=== PATIENT | female | born 1980 | race Caucasian/White ===

== ENCOUNTER 2016-07-11 08:00 | Inpatient (IN) | payer BC ==
[2016-07-11] MEDS ORDERED: TUBERCULIN PPD 5 TU/0.1ML SYRINGE (IN PATIENT USE ONLY) ID ONE (08:45)
[2016-07-11] MEDS ORDERED: DINOPROSTONE 10 MG VAGINAL SUPPOSITORY VG ONE ×2 (08:45→23:30)
[2016-07-11 09:30] VITALS: BMI 37.4
[2016-07-11] MEDS ORDERED: BUTORPHANOL TARTRATE 1 MG/ML VIAL IVPB ONE (09:33)
--- NOTE | 2016-07-11 09:35 | HP ---
Past Medical History - Admission History of Present Illness: 35 y/o with SIUP at 41 weeks here for labor induction for late term. complicated only by polyhydramnios in 2nd trimester which resolved. GBS negative, HIV negative. No other complaints/issues. 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 Pulmonary: No: Asthma, COPD Gastrointestinal: Yes: Irritable Bowel Disease ...: 1 ...Para: 0 ...LMP: 09/28/15 ...EDC by Sono: 07/04/16 Heme/Onc: No: Anemia, Bleeding Disorder Infectious Disease: No: MRSA, STD's Psych: Yes: Anxiety, Depression (no meds, mood stable throughout ) Rheumatology: Yes: Fibromyalgia (no meds) - Past Surgical History Past Surgical History: Yes: None Hx Myomectomy: No Hx Transabdominal Cerclage: No - Smoking History Smoking history: Never smoked Have you smoked in the past 12 months: No - Alcohol/Substance Use Hx Alcohol Use: No History of Substance Use: reports: None - Social History Usual Living Arrangement: Yes: With Spouse History of Recent Travel: No Home Medications - Allergies Allergies/Adverse Reactions: Allergies Allergy/AdvReac Type Severity Reaction Status Date / Time midodrine Allergy Severe Hives Verified 07/11/16 08:29 - Home Medications Home Medications: Ambulatory Orders NK [No Known Home Medication] 07/11/16 Physical Exam - Maternity Vital Signs: Vital Signs Temperature 98.2 F 07/11/16 09:20 Pulse Rate 98 H 07/11/16 09:20 Respiratory Rate 20 07/11/16 09:20 Blood Pressure 124/82 07/11/16 09:20 O2 Sat by Pulse Oximetry (%) Constitutional: Yes: Well Nourished, No Distress, Calm Eyes: Yes: Conjunctiva Clear, EOM Intact HENT: Yes: Atraumatic, Normocephalic Neck: Yes: Supple, Trachea Midline Cardiovascular: Yes: Regular Rate and Rhythm Lungs: Clear to auscultation - Abdominal Exam/OB Fundal Height: 41 Number of Fetuses: Single Presentation: Vertex Contractions: No Intensity: Unaware Monitor Mode: External Heart Rate (range): 155 Category: I Accelerations: None - Vaginal Exam/OB Vaginal Bleediing: No Speculum Exam: No Dilatation (cm): 0 Effacement (%): 0 Amniotic Membrane Status: Intact Presentation: Vertex/Position Station: -3 - Physical Exam Extremities: Yes: WNL Edema: Yes Edema: LLE: 1+, RLE: 1+ Integumentary: Yes: WNL Psychiatric: Yes: Alert, Oriented Hemorrhage Risk Assessment - Risk Factors Medium Risk Factors: Yes: None High Risk Factors: Yes: None Risk Score: 1 Risk Level: Medium Risk Problem List - Problems (1) Post-dates Code(s): O48.0 - POST-TERM (2) Anxiety Code(s): F41.9 - ANXIETY DISORDER, UNSPECIFIED Assessment/Plan 35 y/o with SIUP at 41 weeks, induction of labor for late term - AFVSS - FHTS cat 1 - late term , for IOL - cervidil placed. For re evaluation at 12 hours ,may need 2nd cervidil vs. pitocin - GBS negative - h/o anxiety - no meds, mood stable, will monitor
[2016-07-11 09:58] LABS: BASOPHIL 0.4 % (0-2.0); EOSINOPHIL 0.9 % (0-4.5); MCH 26.7 pg (25.7-33.7); MCHC 32.5 g/dl (32.0-36.0); MEAN CELL VOLUME 82.2 fl (80-96); MEAN PLT VOLUME 9.4 fl (7.5-11.1); NEUTROPHILS 75.3 % (42.8-82.8); PLATELET COUNT 177 K/MM3 (134-434); RDW 14.9 % (11.6-15.6); WHITE BLOOD COUNT 8.8 K/mm3 (4.0-10.0)
[2016-07-11 10:12] LABS: INR 0.94 (0.82-1.09); PROTHROMBIN TIME (PATIENT) 10.3 SEC (9.98-11.88)
[2016-07-11 10:21] LABS: CALCIUM 8.8 mg/dL (8.5-10.1); COCKROFT - GAULT 140.4795; CREATININE 0.8 mg/dL (0.55-1.02)
[2016-07-11 11:31] LABS: HIV 1 & 2 AB NEGATIVE; HIV 1 AGp24 NEGATIVE
[2016-07-11] MEDS: DEXTROSE 5%-LACTATED RINGERS 1,000 ML IV SCH (22:30)
[2016-07-12] MEDS: DEXTROSE 5%-LACTATED RINGERS 1,000 ML IV SCH ×3 (04:45→20:30)
--- NOTE | 2016-07-12 08:22 | PN ---
Ante-Partal Exam - Subjective Subjective: pt feeling some contractions overnight but overall comfortable Vital Signs: Vital Signs Temperature 98.2 F 07/12/16 08:00 Pulse Rate 72 07/12/16 08:00 Respiratory Rate 20 07/12/16 08:00 Blood Pressure 131/77 07/12/16 08:00 O2 Sat by Pulse Oximetry (%) Bleeding: No Headache: No Visual changes: No Right upper quadrant pain: No Pain (scale 1-10): 2 - Contractions Contractions: Yes Regularity: Irregular Intensity: Mild Monitor Mode: External - Exam during Labor Heart Rate: 140 Variability: Moderate Category: I Monitor Accelerations: Present Monitor Decelerations: None Exam: Vaginal Dilatation (cm): 1 Effacement (%): 0 Amniotic Membrane Status: Intact Presentation: Vertex Station: -3 - Assessment/Plan Assessment/Plan: 35 y/o with SIUP at 41.1 weeks, IOL for late term - FHTS cat 1 - AFVSS - IOL, s/p cervidil yesterday, minimal cervical change, 2nd cervidil placed now , for pitocin this evening - GBS negative - h/o HSV 2, 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
[2016-07-12] MEDS ORDERED: DINOPROSTONE 10 MG VAGINAL SUPPOSITORY VG ONE (10:00)
[2016-07-12] MEDS ORDERED: OXYTOCIN 15 UNITS/ LR 250 ML 250 ML IVPB SCH (22:15)
--- NOTE | 2016-07-13 09:25 | PN ---
Ante-Partal Exam - Subjective Subjective: 35 y/o with SIUP at 41.2 weeks, labor induction for late term s/p SROM at 0045 this a.m. on pitocin at 11 Vital Signs: Vital Signs Temperature 98.4 F 07/13/16 08:00 Pulse Rate 73 07/13/16 08:00 Respiratory Rate 20 07/13/16 08:00 Blood Pressure 134/78 07/13/16 08:00 O2 Sat by Pulse Oximetry (%) Bleeding: No Headache: No Visual changes: No Right upper quadrant pain: No Pain (scale 1-10): 3 - Contractions Contractions: Yes Regularity: Regular Intensity: Mild/Mod Monitor Mode: External - Exam during Labor Heart Rate: 155 Variability: Moderate Category: I Monitor Accelerations: Present Monitor Decelerations: None Exam: Vaginal Dilatation (cm): 1 Effacement (%): 0 Amniotic Membrane Status: Ruptured Nitrazine Test: Positive Amniotic Fluid: Clear Presentation: Vertex Station: -3 - Intrapartum Hemorrhage Risk Medium Risk Factors: None High Risk Factors: None Risk Score: 0 Risk Level: Low Risk - Assessment/Plan Assessment/Plan: 35 y/o with SIUP at 41.2 weeks, IOL for late term - AFVSS - FHTS cat 1 - IOL, s/p cervidil X 2, now s/p SROM and on Pitocin, continue with IOL. Pt with no progress since yesterday with dilation. Will re evaluate for progress this afternoon, if no significant cervical change, pt states she will elect to undergo a delivery. - GBS negative
[2016-07-13] MEDS ORDERED: METHYLERGONOVINE MALEATE 0.2 MG/1 ML AMP IM PRN (16:32)
[2016-07-13] MEDS ORDERED: oxyCODONE HCL 5 MG TABLET PO PRN (16:32)
[2016-07-13] MEDS ORDERED: CITRIC ACID/SODIUM CITRATE 30 ML UNIT-DOSE CUP PO ONE (16:32)
--- NOTE | 2016-07-13 16:40 | PN ---
Ante-Partal Exam - Subjective Subjective: Pt seen and evaluated, doing well. Pitocin at 15, pt with contractions every 1- 2, then irregular pattern. Dysfunctional labor pattern and patient admits to feeling no pain. Pt still LOF, +FM. NO VB. Vital Signs: Vital Signs Temperature 98.2 F 07/13/16 14:00 Pulse Rate 80 07/13/16 15:00 Respiratory Rate 20 07/13/16 15:00 Blood Pressure 117/66 07/13/16 15:00 O2 Sat by Pulse Oximetry (%) Bleeding: No Headache: No Visual changes: No Right upper quadrant pain: No Pain (scale 1-10): 2 - Contractions Contractions: Yes Regularity: Irregular Intensity: Mild Monitor Mode: External - Exam during Labor Heart Rate: 155 Variability: Moderate Category: I Monitor Accelerations: Present Monitor Decelerations: None Exam: Vaginal Presentation: Vertex - Assessment/Plan Assessment/Plan: IOL for late term, pt now 41.2 weeks gestation. FHTS cat 1. AFvss. Pt on pitocin since 9pm 07/12, SROM at 1245 am 07/13- pt feeling no discomfort/ pain or pressure. No labor progress. Discussed plan of care with patient including r/b/a of treatment - pt agrees to proceed with primary delivery. Nursing and anesthesia aware. Consents signed, questions answered. SCDS applied for [place] catheter preop antibiotics.
[2016-07-13] MEDS ORDERED: ELECTROLYTE-148 SOLN 1,000 ML IV SCH (17:00)
[2016-07-13] MEDS: OXYTOCIN 20 UNITS in 0.9% NS 1,000 ML IV SCH (18:05)
--- NOTE | 2016-07-13 18:07 | OP ---
Operative Note - Note: Operative Date: 07/13/16 Pre-Operative Diagnosis: failed labor induction, late term Operation: primary low transverse section Findings: normal b/l tubes and ovaries Surgeon: Samara Wheeler Family Medicine Chair: Benigno Elena Anesthesiologist/ARABIC PROFESSOR: Ann Toney Anesthesia: Spinal Specimens Removed: placenta, cord blood gas ABG Estimated Blood Loss (mls): 600 Operative Report Dictated: Yes
[2016-07-13] MEDS ORDERED: ONDANSETRON 4 MG/2 ML VIAL IVPB PRN (18:27)
[2016-07-13 19:07] LABS: VENOUS PH 7.34 (7.32-7.42)
[2016-07-13 19:08] LABS: VENOUS BLOOD GAS HCO3 25.6 meq/L (19-25)
[2016-07-13] MEDS: IBUPROFEN 800 MG/8 ML IJ IVPB PRN ×2 (20:58→21:43)
[2016-07-14] MEDS ORDERED: CEFAZOLIN (PRE-DOCKED) 50 ML IVPB ONE ×3 (03:52→17:04)
[2016-07-14] MEDS: CEFAZOLIN 1 GM/D5W 50 ML IVPB SCH ×3 (03:52→17:17)
--- NOTE | 2016-07-14 08:18 | PN ---
Progress Note, Physician Chief Complaint: she offers no complaints she denies nausea vomitting passing gas urine output is moderatly decreased History of Present Illness: s/p section day #1 condition stable - Current Medication List Current Medications: Active Medications Acetaminophen (Tylenol -) 650 mg PO Q4H PRN PRN Reason: FEVER OR PAIN Bisacodyl (Dulcolax Suppository -) 10 mg RC PRN PRN PRN Reason: CONSTIPATION Diphenhydramine HCl (Benadryl Injection -) 25 mg IVPUSH Q4H PRN PRN Reason: Pruritis Diphtheria/Tetanus/Acell Pertussis (Boostrix -) 0.5 ml IM .ONCE ONE Stop: 07/15/16 10:01 Cefazolin Sodium (Ancef 1 Gm Premixed Ivpb -) 50 mls @ 100 mls/hr IVPB Q8H-IV BRI Stop: 07/15/16 01:59 Last Admin: 07/14/16 03:52 Dose: 100 mls/hr Parenteral Electrolytes (Plasma-Lyte 148 -) 1,000 mls @ 125 mls/hr IV [facility] Last Admin: 07/13/16 16:30 Dose: 125 mls/hr Oxytocin/Sodium Chloride (Normal Saline+20 Units Oxytocin -) 1,000 mls @ 125 mls/hr IV [facility] Last Admin: 07/13/16 18:05 Dose: 125 mls/hr Ibuprofen (Motrin -) 600 mg PO Q4H PRN PRN Reason: PAIN Ibuprofen (Caldolor Injection -) 800 mg IVPB Q8H PRN PRN Reason: PAIN OR FEVER Last Admin: 07/13/16 21:43 Dose: 800 mg Methylergonovine Maleate (Methergine Injection -) 0.2 mg IM Q4H PRN PRN Reason: Excessive Bleeding (L&D) Oxycodone HCl (Roxicodone -) 5 mg PO Q4H PRN PRN Reason: PAIN LEVEL 1-5 Oxycodone HCl (Roxicodone -) 10 mg PO Q4H PRN PRN Reason: PAIN LEVEL 6-10 Simethicone (Mylicon -) 80 mg PO Q4H PRN PRN Reason: GAS - Objective Vital Signs: Vital Signs Temperature 98.1 F 07/14/16 06:00 Pulse Rate 76 07/14/16 06:00 Respiratory Rate 20 07/14/16 06:00 Blood Pressure 124/64 07/14/16 06:00 O2 Sat by Pulse Oximetry (%) 99 07/13/16 19:15 Constitutional: Yes: Well Nourished, No Distress Eyes: Yes: WNL, Conjunctiva Clear HENT: Yes: WNL, Atraumatic, Normocephalic Neck: Yes: WNL, Supple Cardiovascular: Yes: WNL, Regular Rate and Rhythm Respiratory: Yes: WNL, Regular Gastrointestinal: Yes: WNL, Normal Bowel Sounds, Soft ...Rectal Exam: Yes: Deferred Genitourinary: Yes: WNL, Rivera Present Breast(s): Yes: WNL Musculoskeletal: Yes: WNL Extremities: Yes: WNL Edema: Yes Peripheral Pulses WNL: Yes Integumentary: Yes: WNL Wound/Incision: Yes: Dressing Dry and Intact Neurological: Yes: Alert, Oriented ...Motor Strength: WNL Labs: CBC, BMP 07/11/16 09:15 07/11/16 09:15 INR, PTT INR 0.94 (0.82-1.09) 07/11/16 09:15 Assessment/Plan condition stable post op day #1 karen ue current care advance diet and activities encourage ambulation
[2016-07-14 08:33] LABS: BASOPHIL 0.2 % (0-2.0); EOSINOPHIL 0.4 % (0-4.5); MCH 27.2 pg (25.7-33.7); MCHC 33.1 g/dl (32.0-36.0); MEAN CELL VOLUME 82.2 fl (80-96); MEAN PLT VOLUME 9.1 fl (7.5-11.1); PLATELET COUNT 151 K/MM3 (134-434); RDW 15.2 % (11.6-15.6); WHITE BLOOD COUNT 8.3 K/mm3 (4.0-10.0)
[2016-07-14] MEDS: ACETAMINOPHEN 325 MG TABLET (FP) PO PRN ×3 (08:36→19:55)
[2016-07-14] MEDS: IBUPROFEN 600 MG TABLET (FP) PO PRN ×3 (08:37→19:53)
[2016-07-14] MEDS: SIMETHICONE 80 MG TAB.CHEW (FP) PO PRN ×3 (08:38→19:53)
[2016-07-14] MEDS: OXYTOCIN 20 UNITS in 0.9% NS 1,000 ML IV SCH (09:15)
--- NOTE | 2016-07-14 10:57 | PN ---
Progress Note (short form) - Note Progress Note: Anesthesia/Pain Alert and awake Vital Signs Temperature 98.1 F 07/14/16 06:00 Pulse Rate 76 07/14/16 06:00 Respiratory Rate 20 07/14/16 06:00 Blood Pressure 124/64 07/14/16 06:00 O2 Sat by Pulse Oximetry (%) 99 07/13/16 19:15 CBC, BMP 07/14/16 07:45 07/11/16 09:15 Current Active Problems Anxiety (Acute) Post-dates (Acute) s/p c section anemic Comfortable watch h/h continue current care Mervin Estevez MD
--- NOTE | 2016-07-14 16:15 | PN ---
Progress Note (short form) - Note Progress Note: Called due to pt with hbg 7 will notify patient and order 2 units pack red bleed cells
[2016-07-14] MEDS ORDERED: BISACODYL 10 MG SUPP.RECT RC PRN (16:32)
[2016-07-15] MEDS: IBUPROFEN 600 MG TABLET (FP) PO PRN ×6 (01:17→23:18)
[2016-07-15] MEDS: SIMETHICONE 80 MG TAB.CHEW (FP) PO PRN ×6 (01:17→23:17)
[2016-07-15] MEDS: ACETAMINOPHEN 325 MG TABLET (FP) PO PRN ×3 (01:19→09:09)
[2016-07-15] MEDS: oxyCODONE HCL 5 MG TABLET PO PRN ×4 (09:29→23:18)
[2016-07-15] MEDS ORDERED: DIPHTH,PERTUSS(ACELL),TET 0.5 ML DISP.SYRIN IM ONE (10:00)
[2016-07-15 11:15] LABS: BASOPHIL 0.4 % (0-2.0); EOSINOPHIL 0.5 % (0-4.5); MCH 27.3 pg (25.7-33.7); MCHC 32.8 g/dl (32.0-36.0); MEAN CELL VOLUME 83.2 fl (80-96); MEAN PLT VOLUME 9.5 fl (7.5-11.1); PLATELET COUNT 167 K/MM3 (134-434); RDW 15.3 % (11.6-15.6); WHITE BLOOD COUNT 10.8 K/mm3 (4.0-10.0)
--- NOTE | 2016-07-15 23:16 | PN ---
Progress Note (SOAP) - Subjective Chief Complaint: Pt feeling better after 2u of prbc no dizziness Pt has energy - Current Medications Current Medications: Active Medications Acetaminophen (Tylenol -) 650 mg PO Q4H PRN PRN Reason: FEVER OR PAIN Last Admin: 07/15/16 09:09 Dose: 650 mg Bisacodyl (Dulcolax Suppository -) 10 mg RC PRN PRN PRN Reason: CONSTIPATION Diphenhydramine HCl (Benadryl Injection -) 25 mg IVPUSH Q4H PRN PRN Reason: Pruritis Ibuprofen (Motrin -) 600 mg PO Q4H PRN PRN Reason: PAIN Last Admin: 07/15/16 18:56 Dose: 600 mg Ibuprofen (Caldolor Injection -) 800 mg IVPB Q8H PRN PRN Reason: PAIN OR FEVER Last Admin: 07/13/16 21:43 Dose: 800 mg Methylergonovine Maleate (Methergine Injection -) 0.2 mg IM Q4H PRN PRN Reason: Excessive Bleeding (L&D) Oxycodone HCl (Roxicodone -) 5 mg PO Q4H PRN PRN Reason: PAIN LEVEL 1-5 Last Admin: 07/15/16 18:57 Dose: 5 mg Oxycodone HCl (Roxicodone -) 10 mg PO Q4H PRN PRN Reason: PAIN LEVEL 6-10 Simethicone (Mylicon -) 80 mg PO Q4H PRN PRN Reason: GAS Last Admin: 07/15/16 18:56 Dose: 80 mg - Objective Vital Signs: Vital Signs Temperature 98.4 F 07/15/16 22:00 Pulse Rate 73 07/15/16 22:00 Respiratory Rate 18 07/15/16 22:00 Blood Pressure 146/71 07/15/16 22:00 O2 Sat by Pulse Oximetry (%) 99 07/13/16 19:15 Constitutional: Yes: Well Nourished, No Distress Neck: Yes: WNL Gastrointestinal: Yes: WNL, Normal Bowel Sounds ...Rectal Exam: Yes: WNL Genitourinary: Yes: WNL ....Post : Yes: Uterus firm, Uterus non-tender Edema: Yes Edema: LLE: 1+, RLE: 1+ Integumentary: Yes: Laceration Neurological: Yes: WNL, Alert, Oriented Labs Lab Results: CBC, BMP 07/15/16 10:05 07/11/16 09:15 Problem List - Problems (1) delivery delivered Code(s): O82 - ENCOUNTER FOR DELIVERY WITHOUT INDICATION Assessment/Plan Anemia - Transfused 2 units yesterday POD2 Stable Plan CBC in AM ferrous sulfate BID
[2016-07-16] MEDS: ACETAMINOPHEN 325 MG TABLET (FP) PO PRN (08:08)
[2016-07-16] MEDS: SIMETHICONE 80 MG TAB.CHEW (FP) PO PRN (08:09)
[2016-07-16 08:13] LABS: BASOPHIL 0.3 % (0-2.0); EOSINOPHIL 1.4 % (0-4.5); MCH 27.2 pg (25.7-33.7); MEAN CELL VOLUME 82.7 fl (80-96); MEAN PLT VOLUME 8.9 fl (7.5-11.1); NEUTROPHILS 74.9 % (42.8-82.8); PLATELET COUNT 179 K/MM3 (134-434); RDW 15.8 % (11.6-15.6); WHITE BLOOD COUNT 9.3 K/mm3 (4.0-10.0)
[2016-07-16] MEDS: FERROUS SO4 325 MG TABLET (FP) PO SCH ×2 (09:23→21:55)
--- NOTE | 2016-07-16 10:03 | PN ---
Progress Note (SOAP) - Subjective Chief Complaint: Pt found sitting in chair no HAIR or ruq pain elevated BP - Current Medications Current Medications: Active Medications Acetaminophen (Tylenol -) 650 mg PO Q4H PRN PRN Reason: FEVER OR PAIN Last Admin: 07/16/16 08:08 Dose: 650 mg Bisacodyl (Dulcolax Suppository -) 10 mg RC PRN PRN PRN Reason: CONSTIPATION Diphenhydramine HCl (Benadryl Injection -) 25 mg IVPUSH Q4H PRN PRN Reason: Pruritis Ferrous Sulfate (Feosol -) 325 mg PO BID BRI Last Admin: 07/16/16 09:23 Dose: 325 mg Ibuprofen (Motrin -) 600 mg PO Q4H PRN PRN Reason: PAIN Last Admin: 07/15/16 23:18 Dose: 600 mg Ibuprofen (Caldolor Injection -) 800 mg IVPB Q8H PRN PRN Reason: PAIN OR FEVER Last Admin: 07/13/16 21:43 Dose: 800 mg Methylergonovine Maleate (Methergine Injection -) 0.2 mg IM Q4H PRN PRN Reason: Excessive Bleeding (L&D) Oxycodone HCl (Roxicodone -) 5 mg PO Q4H PRN PRN Reason: PAIN LEVEL 1-5 Last Admin: 07/15/16 23:18 Dose: 5 mg Oxycodone HCl (Roxicodone -) 10 mg PO Q4H PRN PRN Reason: PAIN LEVEL 6-10 Simethicone (Mylicon -) 80 mg PO Q4H PRN PRN Reason: GAS Last Admin: 07/16/16 08:09 Dose: 80 mg - Objective Vital Signs: Vital Signs Temperature 98.7 F 07/16/16 08:00 Pulse Rate 69 07/16/16 08:00 Respiratory Rate 20 07/16/16 08:00 Blood Pressure 146/94 07/16/16 08:00 O2 Sat by Pulse Oximetry (%) 99 07/13/16 19:15 Constitutional: Yes: Well Nourished, No Distress Cardiovascular: Yes: WNL Respiratory: Yes: WNL Gastrointestinal: Yes: WNL, Soft, Abdomen, Obese Edema: Yes Edema: LLE: 1+, RLE: 1+ Wound/Incision: Yes: Clean/Dry, Well Approximated Neurological: Yes: WNL, Alert, Oriented Labs Lab Results: CBC, BMP 07/16/16 07:00 07/11/16 09:15 Problem List - Problems (1) delivery delivered Code(s): O82 - ENCOUNTER FOR DELIVERY WITHOUT INDICATION (2) Gestational [-induced] hypertension without significant proteinuria , complicating childbirth Code(s): O13.4 - GESTATNL HTN WITHOUT SIGNIFICANT PROTEIN, COMP CHILDBIRTH Assessment/Plan Anemia - Transfused 2 units yesterday POD3 Elevated BP Stable Plan Preeclamptic labs renal Consult Consider Labetalol will do BP Q 4
[2016-07-16 11:06] LABS: CALCIUM 8.1 mg/dL (8.5-10.1)
[2016-07-16 11:12] LABS: ALBUMIN 2.1 g/dl (3.4-5.0); ALK PHOS 107 U/L (45-117); ANION GAP 10 (8-16); BILIRUBIN,TOTAL 0.2 mg/dL (0.2-1.0); CO2 26 mmol/L (21-32); COCKROFT - GAULT 140.4795; CREATININE 0.8 mg/dL (0.55-1.02); GLUCOSE,RANDOM 78 mg/dL (74-106); INR 0.95 (0.82-1.09); LDH 172 U/L (84-246); PROTHROMBIN TIME (PATIENT) 10.4 SEC (9.98-11.88); SGOT/AST 27 U/L (15-37); SGPT/ALT 21 U/L (12-78)
[2016-07-16 11:26] LABS: URIC ACID 5.3 mg/dL (2.6-7.2)
--- NOTE | 2016-07-16 11:33 | CONSULT ---
Consult Consult Specialty:: Nephrology- Drs. Russ/ Luke Referred by:: Dr. Corbett Reason for Consultation:: Post Hypertension - History of Present Illness Chief Complaint: 35 y/o white female , s/p LSCS on 07/13/16, has elevated BP. Patient had had normal BP all along , except towards the latter part of the third trimester, the BP was mildly elevated. The patient reports that she used to have Orthostatic Hypotension, but that she had allergy to Midodrine. Gets occasional Headache. Getting Motrin for headache. 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 Pulmonary: No: Asthma, COPD Gastrointestinal: Yes: Irritable Bowel Disease Infectious Disease: No: MRSA, STD's Psych: Yes: Anxiety, Depression (no meds, mood stable throughout ) Rheumatology: Yes: Fibromyalgia (no meds) - Past Surgical History Past Surgical History: Yes: None - Alcohol/Substance Use Hx Alcohol Use: No History of Substance Use: reports: None - Smoking History Smoking history: Never smoked Have you smoked in the past 12 months: No - Social History History of Recent Travel: No Home Medications - Allergies Allergies/Adverse Reactions: Allergies Allergy/AdvReac Type Severity Reaction Status Date / Time midodrine Allergy Severe Hives Verified 07/11/16 08:29 - Home Medications Home Medications: Ambulatory Orders NK [No Known Home Medication] 07/11/16 Family Disease History - Family Disease History Family Disease History: CA: Grandparent (Grandmother had kidney cancer) Review of Systems - Review of Systems Constitutional: denies: Loss of Appetite, Night Sweats Eyes: denies: Blind Spots, Blurred Vision, Double Vision, Eye Pain, Photophobia HENT: denies: Difficult Swallowing Cardiovascular: denies: Chest Pain, Palpitations, Shortness of Breath Respiratory: denies: Cough Gastrointestinal: denies: Abdominal Pain Genitourinary: denies: Burning Neurological: reports: Headache (occasionally) Physical Exam Vital Signs: Vital Signs Temperature 98.7 F 07/16/16 08:00 Pulse Rate 69 07/16/16 08:00 Respiratory Rate 20 07/16/16 08:00 Blood Pressure 146/94 07/16/16 08:00 O2 Sat by Pulse Oximetry (%) 99 05/19/17 19:15 Constitutional: Yes: Well Nourished, Calm Neck: Yes: Supple, Trachea Midline Cardiovascular: Yes: Regular Rate and Rhythm, S1, S2 Respiratory: Yes: CTA Bilaterally Gastrointestinal: Yes: Normal Bowel Sounds, Soft Renal/: No: CVA Tenderness - Left, CVA Tenderness - Right, Hematuria, Incontinence Breast(s): Yes: Other (Patient is nursing) Edema: Yes Edema: LLE: 3+, RLE: 3+ Labs: CBC, BMP 07/16/16 07:00 07/16/16 10:30 Problem List - Problems (1) Anxiety Code(s): F41.9 - ANXIETY DISORDER, UNSPECIFIED (2) delivery delivered Code(s): O82 - ENCOUNTER FOR DELIVERY WITHOUT INDICATION (3) Gestational [-induced] hypertension without significant proteinuria , complicating childbirth Code(s): O13.4 - GESTATNL HTN WITHOUT SIGNIFICANT PROTEIN, COMP CHILDBIRTH (4) Edema of left lower extremity Code(s): R60.0 - LOCALIZED EDEMA Assessment/Plan 35 y/o female who had LSCS three days ago, has Post Hypertension-- moderately elevated BP, and edema. Minimal headache, but no visual symptoms. Plan: Start the patient on Labetelol. Parameters as written D/C Motrin W/u as ordered, including urine protein Will follow the patient with you. If discharged, would be glad to follow up as out patient. Thank you. Rosaline Russ MD
[2016-07-16] MEDS ORDERED: LABETALOL HCL 200 MG TABLET (FP) PO SCH (12:15)
[2016-07-16] MEDS: LABETALOL HCL 200 MG TABLET (FP) PO SCH ×3 (12:16→23:37)
[2016-07-16 12:53] LABS: URINE APPEARANCE CLEAR; URINE BILIRUBIN NEGATIVE (NEGATIVE); URINE COLOR COLORLESS; URINE GLUCOSE (UA) NEGATIVE (NEGATIVE); URINE KETONE NEGATIVE (NEGATIVE); URINE LEUK ESTERASE NEGATIVE (NEGATIVE); URINE NITRITE NEGATIVE (NEGATIVE); URINE PROTEIN NEGATIVE (NEGATIVE); URINE UROBILINOGEN NEGATIVE E.U./dl (0.2-1.0)
[2016-07-16] MEDS: oxyCODONE HCL 5 MG TABLET PO PRN ×2 (12:59→19:46)
[2016-07-16 13:00] LABS: URINE BLOOD 2+ (NEGATIVE)
[2016-07-16 13:05] LABS: URINE BACTERIA RARE /hpf (NONE SEEN); URINE RBC <1 /hpf (0-3); URINE WBC <1 /hpf (3-5)
--- NOTE | 2016-07-16 13:53 | OP ---
DATE OF OPERATION: 07/13/2016 PREOPERATIVE DIAGNOSIS: Failed induction of labor. POSTOPERATIVE DIAGNOSIS: Failed induction of labor. PROCEDURE: Primary low-transverse section. SURGEON: Samara Wheeler DO FINANCIAL SALES ASSOCIATE: Benigno Elena MD ANESTHESIA: Spinal ANESTHESIOLOGIST: Ann Toney MD ESTIMATED BLOOD LOSS: 600 mL COMPLICATIONS: None SPECIMENS: Included placenta and cord blood gases. FINDINGS: Included normal bilateral tubes and ovaries. Sponge, needle and instrument counts were reported to be correct. DISPOSITION: Stable, to the recovery room. BRIEF HISTORY AND PROCEDURE: Patient is a 35-year-old G1, P0 female who was admitted to labor and delivery on July 11, 2016 for induction of labor secondary to late term. Patient was 41 weeks' gestation at that time. The patient received Cervidil on July 11, 2016 and a second Cervidil on July 12, 2016 for cervical ripening as the patient's cervical exam upon admission was closed, long and high. On July 12, 2016, the patient's exam was still unripe with a cervical exam of 1 cm dilated, uneffaced , and the head was still in -3 station. On the evening of July 12, 2016, the patient was started on Pitocin. On the morning of July 13, 2016 at 00:45 am the patietn did rupture her membranes and later in the morning on the same day, the patient's cervical exam had not changed. The patient remained on Pitocin throughout the day on July 13, 2016. At approximately 4:30 p.m, the patient was admitting no pain with Pitocin which was as high as at 15 at that time. Patient said she was not feeling strong contractions, was still feeling leakage of fluid but was not uncomfortable. Her cervical exam remained unchanged. The patient was counseled on her options, and we discussed the risks and benefits of continuing induction versus section. The patient elected to undergo a section at that time. Consents were signed, and the patient was then taken back to the operating room where she was given spinal anesthesia by Dr. Toney. She was then placed in the dorsal supine position on the operating room table, and a Rivera catheter was placed under sterile conditions. She was prepped and draped in the usual sterile fashion, and a hard timeout was performed. A Pfannenstiel skin incision was created on the skin with a scalpel and carried to the underlying layer of rectus fascia with the Bovie. The fascia was incised on either side of the midline with the Bovie and the incision carried in the superolateral direction with the Bovie. The fascia was tented upward with a Stacey clamp and dissected off the underlying layer of rectus muscle with the Bovie. The rectus muscle was retracted laterally, and the peritoneum was entered bluntly. A bladder blade was inserted to protect the bladder. At this time, a transverse incision was created in the lower uterine segment with a scalpel, which was carried in the superolateral direction bluntly. The was then delivered from the left occiput transverse position. Anterior and posterior shoulders delivered with minimal difficulty, and the infant was delivered in its entirety with ease. The cord was then clamped twice and cut in between, and the was taken over to the warmer to be assessed by the nursing staff. The placenta was then delivered manually and intact. The uterus was exteriorized from the abdomen, inspected and cleared of all debris and amniotic membranes using a dry lap sponge. The hysterotomy was reapproximated in 2 layers, first with 1 Vicryl in a running locked fashion and then the second layer with 0 Biosyn suture in a running fashion. Bilateral tubes and ovaries were inspected and noted to be within normal limits. The hysterotomy appeared to be hemostatic at this time. The posterior cul-de-sac was suctioned. The uterus was placed back in the abdomen. Bilateral gutters were inspected and cleared of all blood clot and debris. The hysterotomy was again noted to be hemostatic. Next, the peritoneal layer was reapproximated using 2-0 chromic suture in a running fashion. The musculature was reapproximated in 2 interrupted sutures using 0-Biosyn. The fascia was reapproximated using 1 Vicryl in a running fashion. The subcutaneous tissue was irrigated, and the bleeding was controlled with the Bovie device to achieve hemostasis. The subcutaneous tissue was reapproximated in a running fashion using 1 Vicryl suture. The skin was reapproximated using 3-0 Vicryl in a subcuticular fashion. Steri-Strips were then applied. Patient tolerated the procedure well, was recovering in stable condition in the recovery room of the labor and delivery suite after the procedure. Sponge needle and instrument count was reported as correct after the procedure. SAMARA WHEELER DO /[id number]
[2016-07-17] MEDS: oxyCODONE HCL 5 MG TABLET PO PRN ×2 (03:35→10:55)
[2016-07-17] MEDS: LABETALOL HCL 200 MG TABLET (FP) PO SCH ×2 (05:36→12:20)
[2016-07-17 08:32] LABS: BASOPHIL 0.3 % (0-2.0); EOSINOPHIL 0.9 % (0-4.5); MCH 27.3 pg (25.7-33.7); MCHC 33.2 g/dl (32.0-36.0); MEAN CELL VOLUME 82.2 fl (80-96); MEAN PLT VOLUME 8.6 fl (7.5-11.1); NEUTROPHILS 73.4 % (42.8-82.8); PLATELET COUNT 179 K/MM3 (134-434); RDW 15.6 % (11.6-15.6); WHITE BLOOD COUNT 7.7 K/mm3 (4.0-10.0)
[2016-07-17] MEDS: FERROUS SO4 325 MG TABLET (FP) PO SCH (09:52)
--- NOTE | 2016-07-17 10:04 | PN ---
Progress Note (short form) - Note Progress Note: Renal Follow up for Hypertension Pt seen and examined at the bedside no acute complaints denies any pain swelling is improving Vital Signs Temperature 98.5 F 07/17/16 10:30 Pulse Rate 73 07/17/16 10:30 Respiratory Rate 18 07/17/16 10:30 Blood Pressure 152/86 07/17/16 10:30 O2 Sat by Pulse Oximetry (%) 99 07/13/16 19:15 Intake & Output 07/14/16 07/15/16 07/16/16 07/17/16 23:59 23:59 23:59 23:59 Intake Total 1450 350 Output Total 1550 2700 Balance -100 -2350 Gen: NAD Ext: 1-2+ edema CBC, BMP 07/17/16 07:30 07/16/16 10:30 Laboratory Tests 07/16/16 07/16/16 10:30 12:00 Creat Clearance w eGFR > 60 AST 27 ALT 21 Albumin 2.1 L Urine Protein Negative Current Medications Diphenhydramine HCl (Benadryl Injection -) 25 mg IVPUSH Q4H PRN PRN Reason: Pruritis Ferrous Sulfate (Feosol -) 325 mg PO BID [facility] Last Admin: 07/17/16 09:52 Dose: 325 mg Labetalol HCl (Normodyne -) 200 mg PO Q6HPO [facility] Last Admin: 07/17/16 05:36 Dose: Not Given Oxycodone HCl (Roxicodone -) 10 mg PO Q4H PRN PRN Reason: PAIN LEVEL 6-10 Last Admin: 07/17/16 03:35 Dose: 10 mg A/P 35 year old woman with PMhx of Orthostatic hypotension as a child presented at 41 weeks gestation now s/p with Hypertension # Hypertension w/o proteinuria or LFT abnormalities BP remains elevated off meds, but is well controlled with Labeatlol Will given 200mg PO this am, if BP responds well can be discharged on Labetalol 200mg PO BID with close follow up in the office in 1 weeks time pt advised to get a BP cuff and monitor BP at home. low salt diet, avoid nsaids advised to call the office with any signs of low bp or any concerns Thank you Salas Butler DO
[2016-07-17] MEDS ORDERED: LABETALOL HCL 200 MG TABLET (FP) PO ONE (10:15)
[2016-07-17 10:41] VITALS: TEMP 98.5
[2016-07-17 12:10] VITALS: BP 142/88; PULSE 92
--- NOTE | 2016-07-17 13:28 | DS ---
Physical Exam-TRANSFORMATION COACH Vital Signs: Vital Signs Temperature 98.5 F 07/17/16 10:30 Pulse Rate 92 H 07/17/16 12:09 Respiratory Rate 18 07/17/16 12:09 Blood Pressure 142/88 07/17/16 12:09 O2 Sat by Pulse Oximetry (%) 99 07/13/16 19:15 Constitutional: Yes: Well Nourished, No Distress, Calm Eyes: Yes: Conjunctiva Clear, EOM Intact HENT: Yes: Atraumatic, Normocephalic Neck: Yes: Supple, Trachea Midline Cardiovascular: Yes: Regular Rate and Rhythm Respiratory: Yes: Regular, CTA Bilaterally Gastrointestinal: Yes: Normal Bowel Sounds, Soft Extremities: No: Calf Tenderness, Erythema Edema: LLE: 1+, RLE: 1+ Wound/Incision: Yes: Clean/Dry, Well Approximated, Steri Strips Psychiatric: Yes: Alert, Oriented Labs: CBC, BMP 07/17/16 07:30 07/16/16 10:30 Delivery - Delivery Section: Primary, Low Flap Transverse Type of Anesthesia: Spinal Episiotomy/Laceration: None EBL (cc): 600 Delivery, Single - Stages of Labor Date of Delivery: 07/13/16 Time of Delivery: 17:39 Time Placenta Delivered: 17:40 Placenta: Yes: Manual Removal - Condition of Infant 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 Hospital Course: Patient admitted for labor induction for late term on 07/11/16. On 07/13/16 after patient received 2 cervidil vaginal inserts and pitocin for 18 hours the patient's cervix remained 1cm dilated and uneffaced. At this point the patient underwent a primary delivery. On post op day 3, the patient began having elevated BPs. PreEclampsia labs were normal. The patient was seen by nephrology and started on labetalol and on post op day 4 the patient was cleared by nephrology for discharge home on labetalol 200mg twice daily. Condition: Good - Instructions Diet, Activity, Other Instructions: Physical activity Resume your normal everyday activity as tolerated no heavy lifting or exercise until seen by your surgeon. You may walk unlimited celestina of and climb stairs. You may resume driving the car when you feel safe and comfortable behind the wheel. No sexual activity as instructed. Wound care If you have a bandage, leave it on, and keep dry for 48-72 hours. After that time discard the outer bandage. If they are tapes on the skin under the out of bandage leave them in place. They will peel off in the next 7 to 10 days. Do Not Peel them off. You may shower the day after surgery. If there are tapes present on the skin, you may shower over them. Diet There are no dietary restrictions. Eat healthy, high-fiber foods. Drink 6 to 8 glasses of liquid each day. This will assist in keeping your bowels are regular. Pain management You may take Tylenol or acetaminophen or Ibuprofen (for example, Motrin, Advil etc.) from my pain prescription medication is ordered should be taken as prescribed for moderate to severe pain. Call MD for any of the following: Severe pain not relieved by medication Fever of 101 or higher Excessive bleeding or drainage on dressing Inability to urinate Call and schedule appointment with Dr Sampson Saturday or Saturday next week. Take labatelol 200mg 2 x a day.If headache blurred vision or chest pain call md, Referrals: Samara Wheeler DO [Staff Physician] - Disposition: HOME - Home Medications Comprehensive Discharge Medication List: Ambulatory Orders Labetalol HCl [Normodyne -] 200 mg PO BID #60 tablet 07/17/16
--- NOTE | 2016-07-19 14:49 | PATH ---
Surgical Pathology Report Patient Name: TEJINDER HINTON Med. Rec. #: [id number] /Age/Gender: 1980 (Age: 35) / F Account: [id number] Location: [facility] OBS/SHANK PIECE TACKER Taken: 07/13/2016 Received: 07/16/2016 Reported: 07/19/2016 Physicians: Samara Wheeler M.D. Specimen(s) Received PLACENTA Clinical History 41.1 weeks, post dates, failed induction Primary c/section Final Diagnosis PLACENTA, DELIVERY: FOCALLY DISRUPTED THIRD TRIMESTER PLACENTA WITH MODERATE PREVILLOUS, PERIVILLOUS, AND PRECHORIONIC FIBRIN DEPOSITION, FOCAL CALCIFICATIONS, THREE VESSEL UMBILICAL CORD, AND UNREMARKABLE PLACENTAL MEMBRANES. Electronically Signed Donny Means M.D. Gross Description The specimen is received fresh, labeled "placenta" and is a 527 gram, 18.5 x 14.0 x 2.5 cm placenta with attached membranes and umbilical cord. The attached membranes are roy, translucent with focal opacities and insert marginally. The umbilical cord measures 36 cm in length and averages 1.2 cm in diameter. The cord inserts eccentrically, 4 cm. to the nearest margin. No true knots or strictures are identified. Cut surface of the umbilical cord reveals 3 vessels. The surface is keita-blue with fibrin deposition and appropriate caliber vessels. The maternal surface is red-brown with focal defects. Sectioning reveals red-brown, spongy parenchyma. No focal lesions are identified. Herbicide Service Sales Representative sections are submitted in three cassettes as follows: 1- membrane rolls and umbilical cord; 2-3- full thickness sections of placenta. 07/18/2016 [facility]07/18/2016
== END 2016-07-17 14:15 | disposition home or self-care (01) | DRG 766 ==
LOC: JLDR 08:00 → J3W 07-13 20:11
PROVIDERS: ADMIT Obstetrics & Gynecology; ATTEND Obstetrics & Gynecology
PROC: 10D00Z1 Extraction of Products of Conception, Low, Open Approach (ICD-10-PCS; principal; 2016-07-13)
PROC: 30233N1 Transfusion of Nonautologous Red Blood Cells into Peripheral Vein, Percutaneous Approach (ICD-10-PCS; 2016-07-14)
DX: O61.9 Failed induction of labor, unspecified (principal); O48.0 Post-term pregnancy; O99.344 Other mental disorders complicating childbirth; Z3A.41 41 weeks gestation of pregnancy; F41.9 Anxiety disorder, unspecified; O99.02 Anemia complicating childbirth; D64.9 Anemia, unspecified; O13.4 Gestational [pregnancy-induced] hypertension without significant proteinuria, complicating childbirth; Z37.0 Single live birth
CPT/HCPCS: 36415; 36430; 80048; 80053; 81003; 81015; 82803; 83615; 84550; 85025; 85610; 85730; 86593; 86850; 86900; 86901; 86922; 87389; 88307-TC; 90715; P9038; P9058

== ENCOUNTER 2018-09-19 07:15 | Inpatient (IN) | payer BC ==
[2018-09-19] MEDS ORDERED: KETOROLAC TROMETHAMINE 30 MG/1 ML VIAL ONE (07:55)
[2018-09-19] MEDS ORDERED: OXYTOCIN 10 UNITS/ML VIAL ONE (07:55)
[2018-09-19] MEDS ORDERED: ceFAZolin SODIUM 1 GM VIAL ONE (07:56)
[2018-09-19] MEDS ORDERED: CITRIC ACID/SODIUM CITRATE 30 ML UNIT-DOSE CUP PO ONE (08:00)
[2018-09-19] MEDS ORDERED: ELECTROLYTE-148 SOLN 500 ML IV SCH (08:00)
[2018-09-19] MEDS ORDERED: ELECTROLYTE-148 SOLN 1,000 ML IV SCH (08:15)
[2018-09-19] MEDS ORDERED: ONDANSETRON 4 MG/2 ML VIAL IVPUSH PRN (08:18)
[2018-09-19] MEDS: ELECTROLYTE-148 SOLN 1,000 ML IV SCH (08:23)
[2018-09-19 08:43] VITALS: BMI 35.9
--- NOTE | 2018-09-19 08:51 | HP ---
Past Medical History - Admission Chief Complaint: Here for repeat c section. History of Present Illness: 37 y/o with SIUP at 39 weeks here for scheduled repeat section. No complaints. uncomplicated. H/O anemia with last and HTn with last , not present this . Did need blood transfusion after last delivery due to anemia. History Source: Patient, Medical Record Limitations to Obtaining History: No Limitations - Past Medical History Cardiovascular: Yes: HTN (h/o HTN with prior ) Gastrointestinal: Yes: Irritable Bowel Disease Reproductive: No: Ectopic , Fibroids, PID ...: 2 ...Para: 1 ...Term: 1 ...LMP: 12/20/17 ... Weeks Gestation by Dates: 39.2 ...EDC by Dates: 09/24/18 ...EDC by Sono: 09/26/18 Heme/Onc: Yes: Anemia (with prior ) Infectious Disease: No: STD's Psych: Yes: Anxiety, Depression (no meds, mood stable throughout ) Rheumatology: Yes: Fibromyalgia (no meds) - Past Surgical History Past Surgical History: Yes: None Hx Myomectomy: No Hx Transabdominal Cerclage: No - Smoking History Smoking history: Never smoked Have you smoked in the past 12 months: No - Alcohol/Substance Use Hx Alcohol Use: No History of Substance Use: reports: None - Social History Usual Living Arrangement: Yes: With Spouse ADL: Independent History of Recent Travel: No Home Medications - Allergies Allergies/Adverse Reactions: Allergies Allergy/AdvReac Type Severity Reaction Status Date / Time midodrine Allergy Severe Hives Verified 07/11/16 08:29 - Home Medications Home Medications: Ambulatory Orders Ferrous Sulfate [Iron] 325 mg PO DAILY 08/21/18 Prenat 115/Iron Fum/Folic/Dss [ 19 Tablet] 1 each PO DAILY 08/21/18 Family Disease History - Family Disease History Family Disease History: CA: Grandparent (Grandmother had kidney cancer) Review of Systems - Review of Systems Constitutional: reports: No Symptoms Eyes: reports: No Symptoms HENT: reports: No Symptoms Neck: reports: No Symptoms Cardiovascular: reports: No Symptoms Respiratory: reports: No Symptoms Gastrointestinal: reports: No Symptoms Genitourinary: reports: No Symptoms Breasts: reports: No Symptoms Reported Musculoskeletal: reports: No Symptoms Integumentary: reports: No Symptoms Neurological: reports: No Symptoms Endocrine: reports: No Symptoms Hematology/Lymphatic: reports: No Symptoms Psychiatric: reports: No Symptoms Physical Exam - Maternity Vital Signs: Vital Signs Temperature 97.6 F 09/19/18 08:30 Pulse Rate 70 09/19/18 08:30 Respiratory Rate 20 09/19/18 08:30 Blood Pressure 128/77 09/19/18 08:30 O2 Sat by Pulse Oximetry (%) Constitutional: Yes: Well Nourished, No Distress, Calm Eyes: Yes: Conjunctiva Clear HENT: Yes: Atraumatic Neck: Yes: Supple, Trachea Midline Cardiovascular: Yes: Regular Rate and Rhythm Lungs: Clear to auscultation Breast(s): Yes: WNL - Abdominal Exam/OB Fundal Height: 39 Number of Fetuses: Single Presentation: Vertex Contractions: No Category: I Accelerations: Uniform Decelerations: None - Vaginal Exam/OB Vaginal Bleediing: No Amniotic Membrane Status: Intact - Physical Exam Psychiatric: Yes: Alert, Oriented Hemorrhage Risk Assessment - Risk Factors Medium Risk Factors: Yes: Prior , uterine surgery,or multiple laparotomies High Risk Factors: Yes: None Risk Score: 1 Risk Level: Medium Risk Problem List - Problems (1) Term Code(s): Z34.90 - ENCNTR FOR SUPRVSN OF NORMAL , UNSP, UNSP TRIMESTER (2) History of delivery Code(s): Z98.891 - HISTORY OF UTERINE SCAR FROM PREVIOUS SURGERY Assessment/Plan 37 yo P1 female with SIUP at 39.2 weeks, for scheduled repeat c section anesthesia aware consent signed NPO [place]
[2018-09-19] MEDS ORDERED: OXYTOCIN 20 UNITS in 0.9% NS 20 UNIT/1,000 ML INFUS.BAG IV ONE ×2 (08:59→10:30)
[2018-09-19] MEDS ORDERED: METHYLERGONOVINE MALEATE 0.2 MG/1 ML AMP IM PRN (09:00)
[2018-09-19] MEDS ORDERED: IBUPROFEN 800 MG/8 ML IJ IVPB PRN (09:00)
[2018-09-19] MEDS ORDERED: oxyCODONE HCL 5 MG TABLET PO PRN ×2 (09:00)
--- NOTE | 2018-09-19 09:55 | OP ---
Operative Note - Note: Operative Date: 09/19/18 Pre-Operative Diagnosis: prior c section. IUP at 39 weeks Operation: repeat LTCS Findings: normal b/l tubes and ovaries live male Surgeon: Samara Wheeler Barrel Stave Inspector: Robin Dacosta Anesthesiologist/SHEET METAL SMITH: Louie Martino Anesthesia: Spinal Specimens Removed: placenta Estimated Blood Loss (mls): 600 Operative Report Dictated: Yes
[2018-09-20 07:34] LABS: BASO % 0.3 % (0-2.0); EOS % 1.2 % (0-4.5); HEMOGLOBIN 10.1 GM/dL (10.7-15.3); LYMPH % 15.7 % (8-40); MCHC 34.7 g/dl (32.0-36.0); MEAN CELL VOLUME 92.4 fl (80-96); MONO % 4.9 % (3.8-10.2); NEUT % 77.9 % (42.8-82.8); PLATELET COUNT 158 K/MM3 (134-434); RBC 3.14 M/mm3 (3.60-5.2); RDW 14.6 % (11.6-15.6); WHITE BLOOD COUNT 10.1 K/mm3 (4.0-10.0)
[2018-09-20] MEDS: IBUPROFEN 600 MG TABLET (FP) PO PRN ×3 (08:25→18:25)
[2018-09-20] MEDS: SIMETHICONE 80 MG TAB.CHEW (FP) PO PRN ×3 (08:26→18:25)
--- NOTE | 2018-09-20 08:41 | OP ---
DATE OF OPERATION: 09/19/2018 PREOPERATIVE DIAGNOSIS: Prior section, single intrauterine at 39.2 weeks. POSTOPERATIVE DIAGNOSIS: Prior section, single intrauterine at 39.2 weeks. PROCEDURE: Repeat low transverse section. SURGEON: Samara Wheeler DO ANESTHESIA: Spinal by MERI Summers. [employer] WARRANT OFFICER: MARILUZ Westbrook COMPLICATIONS: None. SPECIMENS REMOVED: Placenta. FINDINGS: Normal bilateral tubes and ovaries. Normal live male infant. COUNTS: Sponge, needle, and instrument count correct. DISPOSITION: Stable to PACU. BRIEF HISTORY AND PROCEDURE: Patient is a 37-year-old, G2, P1 female at 39.2 weeks gestation, who was admitted to labor and delivery for a scheduled repeat section. The patient was admitted to [facility] on September 19, 2018. Upon admission, the consents for the procedure were signed. She was then taken back to the operating room, given spinal anesthesia by Dr. Louie Martino without difficulty. She was then placed in the dorsal supine position, and a Rivera catheter was placed under sterile conditions. She was prepped and draped in the usual sterile fashion, and a hard timeout was performed. A Pfannenstiel skin incision was created in the skin with a scalpel and carried to the underlying layer of rectus fascia sharply. The fascia was incised on either side of the sharply, and the fascial incision was carried in superolateral direction sharply. The fascia was tented upwards and dissected off the underlying layer of rectus muscle sharply, and the musculature was identified in the midline, laterally, and the peritoneum was entered bluntly to allow for adequate room for delivery. A bladder blade was then inserted. A low transverse incision on the uterus was completed with a clean knife and extended in a superolateral direction bluntly. The was then delivered from the LOT, left occiput transverse, position without difficulty. Bilateral shoulders and the remainder of the infant delivered with ease. A 3-vessel cord was noted, was clamped and cut, and the was taken over to the warmer to be assessed by the neonatology staff who was present for the entire delivery. The placenta was delivered with a 3-vessel cord and intact. It was manually extracted from the uterus. The uterus was then exteriorized from the abdomen, inspected, and cleared of all amniotic membrane and debris with a dry lap sponge. The hysterotomy was reapproximated in a 2-layer closure, first using 1 Vicryl in a running locked fashion, second using 0 Biosyn in an imbricating fashion. Then, 3 [id number] sutures were placed on areas of bleeding to achieve hemostasis. Excellent hemostasis was achieved. Bilateral tubes and ovaries were inspected and noted to be normal. The posterior cul-de-sac was suctioned of fluid and blood clot. The uterus was placed back into the abdomen. One small piece of Surgicel was placed on the hysterotomy in an area where a small amount of venous oozing was noted. Excellent hemostasis was achieved. The peritoneum was reapproximated in a running closure using 2-0 chromic. The musculature was reapproximated in a single interrupted 2-0 chromic suture. The fascia was reapproximated using 1 Vicryl in a running locked fashion. The subcutaneous tissue was irrigated and reapproximated in a running fashion using 1 Vicryl and the skin was reapproximated in subcuticular fashion using 3-0 Vicryl and Steri-Strips were applied. The patient tolerated the procedure well, was recovering in stable condition in the PACU after the procedure. SAMARA WHEELER DO /[id number]
[2018-09-20] MEDS ORDERED: BISACODYL 10 MG SUPP.RECT RC PRN (09:01)
[2018-09-20] MEDS: PRENATAL VITAMINS W/ FOLIC ACID TABLET (FP) PO SCH (11:03)
--- NOTE | 2018-09-20 12:11 | OP ---
DATE OF OPERATION: 09/19/2018 PREOPERATIVE DIAGNOSIS: Prior delivery, declined trial of labor after section, intrauterine at 39.2 weeks. PROCEDURE: Repeat low transverse section. SURGEON: Samara Wheeler DO ANESTHESIA: Spinal by MERI Summers. IT HELP DESK MANAGER: MARILUZ Westbrook COMPLICATIONS: None. SPECIMENS REMOVED: Placenta. FINDINGS: Normal bilateral tubes and ovaries, live male infant. DISPOSITION: Stable to PACU. BRIEF HISTORY AND PROCEDURE: Patient is a 37-year-old female who has a history of a prior section due to failure to progress with prior induction, who declined trial of labor after . Patient was counseled on her options and elected to undergo a repeat delivery, was admitted on September 19, 2018, for repeat delivery. Consents for the procedure were signed upon admission. She was taken back to the operating room, given spinal anesthesia by Dr. Louie Martino, placed in the dorsal supine position. A Rivera catheter was placed under sterile conditions. She was prepped and draped in the usual sterile fashion. A hard timeout was performed. A Pfannenstiel skin incision was created in the skin with scalpel and carried to the underlying layer of rectus fascia sharply. The fascia was incised on either side of the midline sharply, and the fascial incision was carried in the superolateral direction sharply. The fascia was tented upward and dissected off the underlying layer of rectus muscles sharply. The musculature was identified, laterally, and the peritoneum was entered sharply to allow for adequate room for delivery. A bladder blade was inserted. A low transverse incision was created on the uterus, which was extended in a superolateral direction bluntly. The was then delivered from the left occiput transverse position without difficulty. Bilateral shoulders and the remainder of the infant delivered with ease. The cord was clamped twice and cut in between and taken over the warmer to be assessed by the neonatology staff, where scores of 9 and 9 were assigned. The placenta was delivered intact. It was manually extracted and sent to pathology for permanent evaluation. The uterus was exteriorized from the abdomen, inspected, and cleared of all amniotic membrane and debris with a dry lap sponge. The hysterotomy was reapproximated in a double-layer closure, first using 1 Vicryl in a running locked fashion. Second using 0 Biosyn in a running imbricating fashion. Any areas of bleeding were given a [id number] suture using 0 Biosyn until hemostasis was achieved. The posterior cul-de-sac was suctioned of blood clot with the Yankauer. The uterus was replaced back into the abdomen. Bilateral gutters were inspected and cleared of all amniotic membrane and debris with a moist lap. The hysterotomy was again noted to be hemostatic. The peritoneum was approximated using 2-0 chromic in a running fashion. The musculature was reapproximated using 0 chromic in a single interrupted suture. The fascia was reapproximated using 1 Vicryl in a running fashion. The subcutaneous tissue was irrigated and reapproximated using 1 Vicryl in a running fashion. The skin was reapproximated using 3-0 Vicryl in a running fashion subcuticularly using 3-0 Vicryl and Steri-Strips were applied. The patient tolerated the procedure well, recovering in stable condition in the PACU after the procedure. Sponge, needle, and instrument count was reported to be correct. SAMARA WHEELER DO /[id number]
[2018-09-20] MEDS: ACETAMINOPHEN 325 MG TABLET (FP) PO PRN ×2 (13:53→18:25)
--- NOTE | 2018-09-20 13:55 | PN ---
Progress Note (SOAP) - Subjective Chief Complaint: Pt seen in chair doing well - Current Medications Current Medications: Active Medications Acetaminophen (Tylenol -) 650 mg PO Q4H PRN PRN Reason: PAIN SCALE 3-4 Bisacodyl (Dulcolax Suppository -) 10 mg RC PRN PRN PRN Reason: CONSTIPATION Diphenhydramine HCl (Benadryl Injection -) 25 mg IVPUSH Q4H PRN PRN Reason: Pruritis Diphtheria/Tetanus/Acell Pertussis (Boostrix -) 0.5 ml IM .ONCE ONE Stop: 09/20/18 10:01 Parenteral Electrolytes (Plasma-Lyte 148 -) 500 mls @ 2,000 mls/hr IV [facility] Last Admin: 09/19/18 07:30 Dose: 2,000 mls/hr Parenteral Electrolytes (Plasma-Lyte 148 -) 1,000 mls @ 125 mls/hr IV [facility] Last Admin: 09/19/18 08:23 Dose: 125 mls/hr Ibuprofen (Motrin -) 600 mg PO Q4H PRN PRN Reason: PAIN LEVEL 1 - 3 Last Admin: 09/20/18 08:25 Dose: 600 mg Ibuprofen (Caldolor Injection -) 800 mg IVPB Q8H PRN PRN Reason: PAIN LEVEL 7-10 Last Admin: 09/20/18 03:00 Dose: 800 mg Methylergonovine Maleate (Methergine Injection -) 0.2 mg IM Q4H PRN PRN Reason: Excessive Bleeding (L&D) Ondansetron HCl (Zofran Injection) 4 mg IVPUSH Q4H PRN PRN Reason: NAUSEA Last Admin: 09/19/18 13:45 Dose: 4 mg Oxycodone HCl (Roxicodone -) 10 mg PO Q4H PRN PRN Reason: PAIN 7 - 10; IF CALDOR NT WRK Oxycodone HCl (Roxicodone -) 5 mg PO Q4H PRN PRN Reason: PAIN LEVEL 4 - 6 Multivit/Folic Acid/Iron ( Vitamins (Sjr) -) 1 tab PO DAILY [facility] Last Admin: 09/20/18 11:03 Dose: 1 tab Simethicone (Mylicon -) 80 mg PO Q4H PRN PRN Reason: GAS Last Admin: 09/20/18 08:26 Dose: 80 mg - Objective Vital Signs: Vital Signs Temperature 98.9 F 09/20/18 10:00 Pulse Rate 85 09/20/18 10:00 Respiratory Rate 18 09/20/18 10:00 Blood Pressure 121/67 09/20/18 10:00 O2 Sat by Pulse Oximetry (%) Constitutional: Yes: Well Nourished, No Distress Gastrointestinal: Yes: WNL, Normal Bowel Sounds, Soft ....Post : Yes: Uterus firm, Uterus non-tender Breast(s): Yes: WNL Musculoskeletal: Yes: WNL Extremities: Yes: WNL Wound/Incision: Yes: Dressing Dry and Intact (seen by nurses pt refused due to beast feeding) Psychiatric: Yes: WNL, Alert, Oriented Labs Lab Results: CBC, BMP 09/20/18 06:30 Assessment/Plan pod 1 STABLE Plan continue present management
--- NOTE | 2018-09-20 16:17 | PN ---
HC Provider Note Provider Note: Anesthesia Post-op Note Pt s/p spinal for c/section Pt sitting in bed, comfortable no acute distress -- pt denies h/a, n/v, no back pain, no urinary retention Pt is ambulating well VSS no apparent anesthesia complications Kendal Valles.
[2018-09-21] MEDS: ACETAMINOPHEN 325 MG TABLET (FP) PO PRN ×5 (00:08→23:14)
[2018-09-21] MEDS: SIMETHICONE 80 MG TAB.CHEW (FP) PO PRN ×5 (00:08→23:14)
[2018-09-21] MEDS: IBUPROFEN 600 MG TABLET (FP) PO PRN ×5 (00:09→23:14)
--- NOTE | 2018-09-21 09:16 | PN ---
Progress Note (SOAP) - Subjective Chief Complaint: Pt seen and examined in bed pt s doing well - Current Medications Current Medications: Active Medications Acetaminophen (Tylenol -) 650 mg PO Q4H PRN PRN Reason: PAIN SCALE 3-4 Last Admin: 09/21/18 08:16 Dose: 650 mg Bisacodyl (Dulcolax Suppository -) 10 mg RC PRN PRN PRN Reason: CONSTIPATION Diphenhydramine HCl (Benadryl Injection -) 25 mg IVPUSH Q4H PRN PRN Reason: Pruritis Diphtheria/Tetanus/Acell Pertussis (Boostrix -) 0.5 ml IM .ONCE ONE Stop: 09/20/18 10:01 Parenteral Electrolytes (Plasma-Lyte 148 -) 500 mls @ 2,000 mls/hr IV [facility] Last Admin: 09/19/18 07:30 Dose: 2,000 mls/hr Parenteral Electrolytes (Plasma-Lyte 148 -) 1,000 mls @ 125 mls/hr IV [facility] Last Admin: 09/19/18 08:23 Dose: 125 mls/hr Ibuprofen (Motrin -) 600 mg PO Q4H PRN PRN Reason: PAIN LEVEL 1 - 3 Last Admin: 09/21/18 08:17 Dose: 600 mg Ibuprofen (Caldolor Injection -) 800 mg IVPB Q8H PRN PRN Reason: PAIN LEVEL 7-10 Last Admin: 09/20/18 03:00 Dose: 800 mg Methylergonovine Maleate (Methergine Injection -) 0.2 mg IM Q4H PRN PRN Reason: Excessive Bleeding (L&D) Ondansetron HCl (Zofran Injection) 4 mg IVPUSH Q4H PRN PRN Reason: NAUSEA Last Admin: 09/19/18 13:45 Dose: 4 mg Oxycodone HCl (Roxicodone -) 10 mg PO Q4H PRN PRN Reason: PAIN 7 - 10; IF CALDOR NT WRK Oxycodone HCl (Roxicodone -) 5 mg PO Q4H PRN PRN Reason: PAIN LEVEL 4 - 6 Multivit/Folic Acid/Iron ( Vitamins (Sjr) -) 1 tab PO DAILY BRI Last Admin: 09/20/18 11:03 Dose: 1 tab Simethicone (Mylicon -) 80 mg PO Q4H PRN PRN Reason: GAS Last Admin: 09/21/18 08:16 Dose: 80 mg - Objective Vital Signs: Vital Signs Temperature 98.5 F 09/20/18 22:00 Pulse Rate 78 09/20/18 22:00 Respiratory Rate 18 09/20/18 22:00 Blood Pressure 116/66 09/20/18 22:00 O2 Sat by Pulse Oximetry (%) Constitutional: Yes: Well Nourished, No Distress Neck: Yes: WNL Gastrointestinal: Yes: WNL, Soft ....Post : Yes: Uterus firm, Uterus non-tender Breast(s): Yes: WNL Musculoskeletal: Yes: WNL Extremities: Yes: WNL Peripheral Pulses WNL: No Edema: No Wound/Incision: Yes: Dressing Dry and Intact Neurological: Yes: WNL, Alert, Oriented Labs Lab Results: CBC, BMP 09/20/18 06:30 Assessment/Plan pod 2 STABLE well Plan continue present management DC home in AM
[2018-09-21] MEDS: PRENATAL VITAMINS W/ FOLIC ACID TABLET (FP) PO SCH (10:15)
[2018-09-21] MEDS ORDERED: DIPHTH,PERTUSS(ACELL),TET 0.5 ML DISP.SYRIN IM ONE (11:00)
[2018-09-22 06:56] LABS: BASO % 0.4 % (0-2.0); HEMATOCRIT 27.2 % (32.4-45.2); HEMOGLOBIN 9.4 GM/dL (10.7-15.3); LYMPH % 22.4 % (8-40); MCH 31.9 pg (25.7-33.7); MCHC 34.4 g/dl (32.0-36.0); MEAN CELL VOLUME 92.7 fl (80-96); MEAN PLT VOLUME 8.8 fl (7.5-11.1); NEUT % 69.2 % (42.8-82.8); PLATELET COUNT 172 K/MM3 (134-434); RBC 2.94 M/mm3 (3.60-5.2); RDW 14.2 % (11.6-15.6); WHITE BLOOD COUNT 7.4 K/mm3 (4.0-10.0)
[2018-09-22 09:03] VITALS: BP 131/76; PULSE 76; TEMP 98.1
[2018-09-22] MEDS: PRENATAL VITAMINS W/ FOLIC ACID TABLET (FP) PO SCH (09:50)
[2018-09-22] MEDS: ELECTROLYTE-148 SOLN 1,000 ML IV SCH (09:51)
[2018-09-22] MEDS: IBUPROFEN 600 MG TABLET (FP) PO PRN (09:55)
[2018-09-22] MEDS: SIMETHICONE 80 MG TAB.CHEW (FP) PO PRN (09:55)
[2018-09-22] MEDS: ACETAMINOPHEN 325 MG TABLET (FP) PO PRN (09:56)
--- NOTE | 2018-09-29 14:29 | PATH ---
Surgical Pathology Report Patient Name: TEJINDER HINTON Med. Rec. 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 Specimen(s) Received PLACENTA Clinical History for repeat , term gestation Final Diagnosis PLACENTA, SECTION: 351 G THIRD TRIMESTER PLACENTA WITH TRIVASCULAR UMBILICAL CORD AND UNREMARKABLE PLACENTAL MEMBRANES. Electronically Signed Farheen Clay M.D. Gross Description The specimen is received fresh labeled placenta and is a 351 gram, 18.0 x 13.0 x 2.4 cm. placenta with attached membranes and umbilical cord. The attached membranes are roy, translucent with focal opacities and insert marginally. The umbilical cord measures 41 cm. in length and averages 1.1 cm. in diameter. The cord inserts eccentrically, 2 cm. to the nearest margin. No true knots or strictures are identified. Cut surface of the umbilical cord reveals 3 vessels. The surface is keita-blue with minimal fibrin deposition and appropriate caliber vessels. The maternal surface is red-brown with focal defects. Sectioning reveals red-brown, spongy parenchyma. No lesions are identified. Hair Dresser sections are submitted in three cassettes as follows: 1- membrane rolls and umbilical cord; 2-3- full thickness sections of placenta. /09/25/2018 saudi09/25/2018
== END 2018-09-22 11:40 | disposition home or self-care (01) | DRG 788 ==
LOC: JLDR 07:15 → J3W 11:15
PROVIDERS: ADMIT Obstetrics & Gynecology; ATTEND Obstetrics & Gynecology
PROC: 10D00Z1 Extraction of Products of Conception, Low, Open Approach (ICD-10-PCS; principal; 2018-09-19)
DX: O34.219 Maternal care for unspecified type scar from previous cesarean delivery (principal); K58.9 Irritable bowel syndrome, unspecified; M79.7 Fibromyalgia; O99.344 Other mental disorders complicating childbirth; F41.8 Other specified anxiety disorders; Z3A.39 39 weeks gestation of pregnancy; Z37.0 Single live birth
CPT/HCPCS: 36415; 85025; 88307-TC; 90715